=== PATIENT | male | born 1930 | race Caucasian/White ===

== ENCOUNTER 2016-07-01 11:13 | Day surgery (SDC) | payer MEDICARE, OTHER ==
[~2016-07-01] VITALS: Ht 172.7 cm; Wt 86.8 kg
[2016-07-01] VITALS (8 sets, daily range): BP systolic 147–172; BP diastolic 68–97; PULSE 69–93; TEMP 97.1–97.7
[2016-07-01] MEDS ORDERED: FLOMAX 0.40.4 MG/CAP PO (12:27)
[2016-07-01] MEDS ORDERED: INDERAL 10MG10 MG PO (12:28)
[2016-07-01] MEDS ORDERED: INDERAL 20MG20 MG PO (12:28)
[2016-07-01] MEDS ORDERED: PRESERVISION1 SGL PO (12:29)
[2016-07-01] MEDS ORDERED: ASPIRIN 32325 MG/TAB PO (12:30)
[2016-07-01] MEDS ORDERED: MULTIPLE VITAMI1 TA5 PO (12:31)
[2016-07-01] MEDS ORDERED: NATURAL E400 IU PO (12:31)
[2016-07-01] MEDS ORDERED: B-121000 MCG PO (12:32)
[2016-07-01] MEDS ORDERED: PHARMASSURE ZIN50 MG PO (12:33)
== END 2016-07-01 18:32 | disposition home or self-care (01) ==
LOC: SDCO 11:13 → SURG 15:25 → SDCO 18:32
DX: D41.4 Neoplasm of uncertain behavior of bladder (principal); N30.21 Other chronic cystitis with hematuria; N30.81 Other cystitis with hematuria; R35.0 Frequency of micturition; I25.10 Atherosclerotic heart disease of native coronary artery without angina pectoris; I10 Essential (primary) hypertension; I47.1 Supraventricular tachycardia
CPT/HCPCS: OP; J1100; J2270; J2370; J2405; J2704; J3010; J7120; Q9967

== ENCOUNTER 2017-03-31 09:32 | Day surgery (SDC) | payer MEDICARE, OTHER ==
[~2017-03-31] VITALS: Ht 172.7 cm; Wt 77.3 kg
[2017-03-31] VITALS (11 sets, daily range): BP systolic 105–150; BP diastolic 67–87; PULSE 70–85; TEMP 97.3–98.8
[~2017-03-31 09:32] MED LIST: ASPIRIN 32325 MG/TAB PO; B-121000 MCG PO; FLOMAX 0.40.4 MG/CAP PO; INDERAL 10MG10 MG PO; INDERAL 20MG20 MG PO; MULTIPLE VITAMI1 TA5 PO; NATURAL E400 IU PO; PHARMASSURE ZIN50 MG PO; PRESERVISION1 SGL PO
[2017-03-31] MEDS ORDERED: VITAMIN D31000 I1 PO (09:59)
[2017-03-31] MEDS ORDERED: VITAMIN C500 MG PO (09:59)
[2017-03-31] MEDS ORDERED: CALCIUM-MAGNES1 EAC1 PO (10:01)
[2017-04-01 02:49] VITALS: BP 132/81; PULSE 88; TEMP 99
[2017-04-01 06:23] VITALS: BP 143/76; PULSE 111; TEMP 98.8
[2017-04-01 09:23] VITALS: BP 124/72; PULSE 129; TEMP 98.5
[2017-04-01 13:58] VITALS: BP 126/76; PULSE 82; TEMP 98.1
[2017-04-01 17:27] VITALS: BP 128/65; PULSE 74; TEMP 97.3
[2017-04-01 21:16] VITALS: BP 143/66; PULSE 86; TEMP 98.4
[2017-04-02 02:10] VITALS: BP 164/96; PULSE 111; TEMP 98.2
[2017-04-02 06:01] VITALS: BP 128/61; PULSE 76; TEMP 97.3
[2017-04-02] MEDS ORDERED: COLACE 100100 MG/CAP PO (09:04)
[2017-04-02] MEDS ORDERED: PYRIDIUM 100MG100 MG PO (09:04)
== END 2017-04-02 12:40 | disposition home or self-care (01) ==
LOC: SDCO 09:32 → SURG 13:00 → SDCO 04-02 12:40
DX: C61 Malignant neoplasm of prostate (principal); N40.1 Benign prostatic hyperplasia with lower urinary tract symptoms; I25.10 Atherosclerotic heart disease of native coronary artery without angina pectoris; E78.5 Hyperlipidemia, unspecified; I11.0 Hypertensive heart disease with heart failure; I50.9 Heart failure, unspecified; I48.0 Paroxysmal atrial fibrillation; B02.29 Other postherpetic nervous system involvement; I47.1 Supraventricular tachycardia; R35.1 Nocturia; I25.2 Old myocardial infarction; Z95.5 Presence of coronary angioplasty implant and graft; Z95.0 Presence of cardiac pacemaker; Z86.73 Personal history of transient ischemic attack (TIA), and cerebral infarction without residual deficits; Z87.891 Personal history of nicotine dependence; Z82.49 Family history of ischemic heart disease and other diseases of the circulatory system; Z83.3 Family history of diabetes mellitus; Z82.3 Family history of stroke
CPT/HCPCS: OP; J0690; J2250; J2270; J2704; J3010; J3480; J7120

== ENCOUNTER 2019-04-05 11:30 | Day surgery (SDC) | payer MEDICARE, OTHER ==
[~2019-04-05] VITALS: Ht 172.7 cm; Wt 86.1 kg
[~2019-04-05 11:30] MED LIST changes: +CALCIUM-MAGNES1 EAC1 PO; +COLACE 100100 MG/CAP PO; +PYRIDIUM 100MG100 MG PO; +VITAMIN C500 MG PO; +VITAMIN D31000 I1 PO
[2019-04-05 12:59] VITALS: BP 126/76; PULSE 120; TEMP 97.3
--- NOTE | 2019-04-05 13:08 | NUR ---
Confirmed that the patient is taking Plavix and did not stop taking this. States that he took a dose yesterday. Surgery cancelled for today and will reschedule on 04/12/2019. Given written instructions to stop Plavix starting now and that he may continue to baby Aspirin 81mg only. Instructed to return at 1030 on 04/12/2019 and provided office number for any questions or concerns.
--- NOTE | 2019-04-05 13:20 | NUR ---
IV discontinued and pressure held for five minutes. Dresses self and patient dismissed to home accompanied by friend.
[2019-04-05] MEDS ORDERED: TESSALON P100 MG/CAP PO (15:20)
[2019-04-05] MEDS ORDERED: PREDNISONE20 MG PO (15:21)
[2019-04-05] MEDS ORDERED: PRAVACHOL 40MG40 MG PO (15:22)
[2019-04-05] MEDS ORDERED: PLAVIX 75MG TAB75 MG PO (15:23)
[2019-04-05] MEDS ORDERED: ZEBETA 5MG5 MG PO (15:24)
[2019-04-05] MEDS ORDERED: ASPIRIN 81M81 MG/TA2 PO (15:24)
[2019-04-05] MEDS ORDERED: MULTIPLE VITAMI1 CAP PO (15:25)
[2019-04-05] MEDS ORDERED: NITROSTAT0.4 MG/TAB SL (15:25)
[2019-04-05] MEDS ORDERED: NATURAL E400 IU PO (15:26)
[2019-04-05] MEDS ORDERED: PHARMASSURE CHE30 MG PO (15:26)
== END 2019-04-05 13:23 | disposition home or self-care (01) ==
LOC: SDCO 11:30
DX: C67.4 Malignant neoplasm of posterior wall of bladder (principal); N40.1 Benign prostatic hyperplasia with lower urinary tract symptoms; I25.10 Atherosclerotic heart disease of native coronary artery without angina pectoris; E78.5 Hyperlipidemia, unspecified; I10 Essential (primary) hypertension; I48.0 Paroxysmal atrial fibrillation; I47.1 Supraventricular tachycardia; Z86.73 Personal history of transient ischemic attack (TIA), and cerebral infarction without residual deficits; Z95.0 Presence of cardiac pacemaker; Z79.82 Long term (current) use of aspirin; Z88.0 Allergy status to penicillin; Z88.8 Allergy status to other drugs, medicaments and biological substances; Z87.891 Personal history of nicotine dependence; Z82.3 Family history of stroke; Z83.3 Family history of diabetes mellitus; Z82.49 Family history of ischemic heart disease and other diseases of the circulatory system; Z53.8 Procedure and treatment not carried out for other reasons
CPT/HCPCS: J7120

== ENCOUNTER 2019-04-12 10:08 | Day surgery (SDC) | payer MEDICARE, OTHER ==
[2019-04-12] VITALS (10 sets, daily range): BP systolic 107–149; BP diastolic 58–86; PULSE 68–124; TEMP 97.2–98
[~2019-04-12] VITALS: Ht 172.7 cm; Wt 86.8 kg
--- NOTE | 2019-04-12 09:00 | NUR ---
Patient is resting and awaits surgery. Family in the room.
[~2019-04-12 10:08] MED LIST changes: +ASPIRIN 81M81 MG/TA2 PO; +MULTIPLE VITAMI1 CAP PO; +NITROSTAT0.4 MG/TAB SL; +PHARMASSURE CHE30 MG PO; +PLAVIX 75MG TAB75 MG PO; +PRAVACHOL 40MG40 MG PO; +PREDNISONE20 MG PO; +TESSALON P100 MG/CAP PO; +ZEBETA 5MG5 MG PO
--- NOTE | 2019-04-12 11:10 | NUR ---
Continues to await surgery. No complaints.
--- NOTE | 2019-04-12 14:19 | NUR ---
PT TO ROOM 322 PER CART WITH REPORT FROM MARCELO DING PACU @ 5239. PT IS A/O X3, HOLT CATHETER TO DD WITH PINK URINE IN BAG. PT DENIES PAIN. STAT LOCK INPLACE. SCDS PLACED BILATERALLY. PT ORIENTED TO ROOM. TRAY ORDERED.
--- NOTE | 2019-04-12 19:14 | NUR ---
REPORT TO LO DING.
--- NOTE | 2019-04-12 23:46 | NUR ---
PATIENT DOING WELL TONIGHT, ALERT AND ORIENTED. HOLT CATHETER IN PLACE DRAINING PINK URINE WITH SEDIMENT. INT TO L WRIST PATENT AND FLUSHES. DENIES PAIN. TOOK SCHEDULED MEDICATIONS WITHOUT ISSUE.
[2019-04-13 03:55] VITALS: BP 125/61; PULSE 74; TEMP 97.5
--- NOTE | 2019-04-13 05:14 | NUR ---
HOLT CATHETER DC'D PER DOCTORS ORDERS. 9 ML REMOVED FROM BALLOON. CATHETER REMOVED, BALLOON INTACT. PATIENT TOLERATED PROCEDURE. URINAL LEFT AT BEDSIDE. NO FURTHER NEEDS AT THIS TIME. WILL CONTINUE TO MONITOR.
[2019-04-13 07:23] VITALS: BP 121/57; PULSE 74; TEMP 97.3
--- NOTE | 2019-04-13 10:45 | NUR ---
Initial visit; Patient thanked Process Coordinator for visiting, offering prayer and spiritual care.
--- NOTE | 2019-04-13 10:56 | NUR ---
FIGUEROA met with the patient to discuss discharge plan. The patient lives alone in [place]. He states that his daughter, Britta Shaw (ph#[phone]), lives in [place], [place] and is aware that he is here. He states that he has friend support in [place]. He reports independence with ADLs and does not have any DME. The patient's PCP is Dr. Girish Whyte and [facility] in [place]. He reports no difficulties obtaining his meds. The patient does not have advanced directives completed, but he was interested in obtaining a form for DPOA-HC. FIGUEROA provided. The patient states that his next of kin is his daughter, Britta. The patient plans to return home upon discharge with a friend providing transport. No additional needs at this time.
[2019-04-13 12:00] VITALS: BP 117/62; PULSE 77; TEMP 98.1
[2019-04-13] MEDS ORDERED: ELIQUIS 5MG PO (13:15)
[2019-04-13] MEDS ORDERED: COUMADIN 5MG5 MG/TAB PO (15:02)
--- NOTE | 2019-04-13 16:04 | NUR ---
Patient ready for discharge. Paperwork has taken longer than anticipated due to cardiology medication reviews. Originally Eliquis was prescribed & then when called into pharmacy it was made aware he would not be able to afford, spoke again to cardiology. Coumadin prescribed. Patient to start taking 5 mg on thursday night. Called into [facility]. All home medications reviewed. "patient reports coumadin is "rat posion". Inr check ordered 04/20/2019, then he will see at 0945. We reviewed all follow up appts. including urology & cardiology. Int Dc. Patient completed 6 bottle routine, he has had frequency & urgency. Briefs & wipes provided. He has tolerated meals. No nausea. I called patients daughter Britta Baca and we discussed all discharge instructions, follow up appt & medications reviewed. I instucted her to follow up with her father. Patient friend Tahir taking him home with all belongings.
== END 2019-04-13 16:35 | disposition home or self-care (01) ==
LOC: SDCO 10:08 → SURG 13:30 → SDCO 04-13 16:35
DX: C67.4 Malignant neoplasm of posterior wall of bladder (principal); I08.3 Combined rheumatic disorders of mitral, aortic and tricuspid valves; E78.5 Hyperlipidemia, unspecified; N40.1 Benign prostatic hyperplasia with lower urinary tract symptoms; I25.10 Atherosclerotic heart disease of native coronary artery without angina pectoris; I10 Essential (primary) hypertension; I48.0 Paroxysmal atrial fibrillation; I47.1 Supraventricular tachycardia; Z79.52 Long term (current) use of systemic steroids; Z79.02 Long term (current) use of antithrombotics/antiplatelets; Z79.82 Long term (current) use of aspirin; Z95.0 Presence of cardiac pacemaker; Z87.891 Personal history of nicotine dependence; Z88.0 Allergy status to penicillin; Z88.8 Allergy status to other drugs, medicaments and biological substances; Z86.73 Personal history of transient ischemic attack (TIA), and cerebral infarction without residual deficits; Z90.79 Acquired absence of other genital organ(s); Z82.49 Family history of ischemic heart disease and other diseases of the circulatory system; Z83.3 Family history of diabetes mellitus; Z82.3 Family history of stroke
CPT/HCPCS: OP; C1769; J0690; J1100; J1160; J2405; J2704; J3010; J7120; J7512